=== PATIENT | male | born 1990 | race African-American/Black ===

== ENCOUNTER 2024-01-12 05:20 | Emergency (ER) | payer BC, SELFPAY ==
[2024-01-12 05:26] VITALS: BP 124/73; PULSE 92; RESP 15; TEMP 37.7; O2SAT 95
--- NOTE | 2024-01-12 05:45 | ED.FEVER ---
HPI - Fever General Chief Complaint: Fever Stated Complaint: Chills, aches, cough, fever Time Seen by Provider: 01/12/24 05:45 Source: patient Mode of arrival: ambulatory Limitations: no limitations History of Present Illness HPI Narrative: Patient presents with chills, cough, rhinorrhea, and subjective fever. Symptoms first started with body aches 3 days ago. His daughter was diagnosed with covid 1 week ago. He tried CBD gummies and Tylenol (last dose yesterday at 7pm. He is also complaining of a sore throat. He did receive 2 covid vaccinations but no boosters/no recent vaccinations. No underlying asthma/COPD. Exam Narrative: GENERAL: Well-appearing, well-nourished, and in no acute distress. HEAD: Normocephalic, atraumatic. EYES: Non injected, non icteric ENT: Nares clear, no rhinorrhea or epistaxis. NECK: Supple. Slightly erythematous posterior oropharynx but without significant tonsillar swelling or exudate. CHEST: Speaking in complete sentences. No respiratory distress. HEART: Regular rate and rhythm. . ABDOMEN: Soft, nondistended. EXTREMITIES: Normal range of motion. No edema. SKIN: Warm, dry, no rash. NEURO: No focal deficits. Alert and oriented x3. PSYCH: Normal mood and affect. Course Vital Signs Vital signs: Vital Signs Temperature 99.8 F H 01/12/24 05:26 Pulse Rate 92 01/12/24 05:26 Respiratory Rate 15 01/12/24 05:26 Blood Pressure 124/73 01/12/24 05:26 Pulse Oximetry 95 01/12/24 05:26 Oxygen Delivery Room Air 01/12/24 05:26 Temperature 99.8 F H 01/12/24 05:26 Pulse Rate 92 01/12/24 05:26 Respiratory Rate 15 01/12/24 05:26 Blood Pressure 124/73 01/12/24 05:26 Pulse Oximetry 95 01/12/24 05:26 Oxygen Delivery Room Air 01/12/24 05:26 MDM - Fever MDM Narrative Medical decision making narrative: Patient presents with myalgias, subjective fevers, chills, cough, sore throat. Daughter recently had covid. Vital signs afebrile, within normal limits. Given meds while await swab results. Tests positive for Influenza B. Discharged home in stable condition ; advised to rest/supportive care. Differential Diagnosis Differential diagnosis: Likely viral infection and other (strep pharyngitis) Lab Data Attestation: I reviewed the patient's lab results. Labs: Lab Results 01/12/24 01/12/24 Range/Units 05:31 05:55 Influenza A (RT-PCR) Negative (Negative) Influenza B (RT-PCR) Positive A (Negative) RSV (RT-PCR) Negative (Negative) SARS-CoV-2 RNA (RT-PCR) Negative (Negative) Group A Strep (PCR) Not detected (Negative) Discharge Plan Discharge Clinical Impression: Influenza B Patient Disposition: Home, Self-Care Condition: Stable Instructions: Antibiotic Form, Influenza (ED) Additional Instructions: You tested positive for Influenza B. Mainstays of treatment are rest and supportive care. You can take acetaminophen/Tylenol and ibuprofen for pain and other symtoms. These are prescribed and safe to take, even together. You received a one time dose of a steroid which has been shown to improve time to symptom resolution of sore throat. You are being provided a work note. Follow up with a primary care physician as needed. If you don't have one someone is listed below you can follow up with. No role for antibiotics, your body's immune system has to fight this off. Prescriptions: New acetaminophen 500 mg capsule 1,000 mg PO Q6H PRN (Reason: fever or pain) Qty: 20 0RF ibuprofen 200 mg capsule 600 mg PO Q6H PRN (Reason: fever or pain) Qty: 20 0RF Follow-up/Referrals: PHYSICIAN NOT ON STAFF,NONSTAFF [Non-Staff] - Edgardo Kolb MD [Physician] - Stand Alone Forms: Work/School Release IP Time of Disposition: 06:48
[2024-01-12] MEDS: IBUPROFEN 600 MG TABLET PO (05:54)
[2024-01-12] MEDS: dexAMETHasone 2 MG TABLET 10 MG PO (05:54)
[2024-01-12 06:12] LABS: Influenza A QL RT-PCR Negative (Negative); Influenza B QL RT-PCR Positive (Negative); RSV RNA, RT-PCR Negative (Negative); SARS-CoV-2 RNA PCR Negative (Negative)
[2024-01-12 06:36] LABS: Strep Group A RT-PCR NOT DETECTED (Negative)
== END 2024-01-12 07:09 | disposition home or self-care (01) ==
LOC: ANHED 06:19
PROVIDERS: Emergency Provider Student in an Organized Health Care Education/Training Program
DX: J10.1 Influenza due to other identified influenza virus with other respiratory manifestations (principal); Z20.822 Contact with and (suspected) exposure to COVID-19
CPT/HCPCS: 87637; 87651; 99283; A9270; J8540